=== PATIENT | female | born 2000 | race Caucasian/White ===

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

== ENCOUNTER 2018-07-12 22:37 | Emergency (ER) | payer OTHER ==
[2018-07-12 22:46] VITALS: BP 118/64; PULSE 89; TEMP 98.4; BMI 24.5
[2018-07-13] MEDS ORDERED: ALBUTEROL SO4 0.083% IH SOL 2.5 MG/3 ML VIAL.NEB. NEB ONE ×2 (02:09→02:29)
[2018-07-13] MEDS ORDERED: LORATADINE 10 MG TABLET PO ONE (02:09)
--- NOTE | 2018-07-13 02:15 | PDOC ---
History of Present Illness - General Chief Complaint: Respiratory Stated Complaint: COUGH Time Seen by Provider: 07/13/18 01:25 History Source: Patient - History of Present Illness Initial Comments: 07/13/18 02:10 17 year old female c/o nasal congestion cough, ithcy throat and itchy eyes x 10 days. reports feeling chills and tactile temps at home. denies NVD + posttussive vomiting. Past History - Past Medical History Allergies/Adverse Reactions: Allergies Allergy/AdvReac Type Severity Reaction Status Date / Time levofloxacin [From Levaquin] Allergy Difficulty Verified 07/12/18 22:47 Breathing Home Medications: Ambulatory Orders Doxycycline Hyclate [Vibramycin -] 100 mg PO BID #28 cap 11/19/17 Albuterol Sulfate Inhaler - [Ventolin HFA Inhaler -] 2 inh PO Q6H PRN #1 inh Fluticasone Propionate [Flonase Allergy Relief] 9.9 ml NS BID #1 spray.susp Loratadine [Claritin] 10 mg PO DAILY #30 tablet 07/13/18 Cardiac Disorders: No COPD: No Thyroid Disease: No - Immunization History Immunization Up to Date: Yes - Suicide/Smoking/Psychosocial Hx Smoking History: Never smoked Have you smoked in the past 12 months: No Hx Alcohol Use: No Drug/Substance Use Hx: No Substance Use Type: None Review of Systems - Review of Systems Able to Perform ROS?: Yes Is the patient limited Divehi proficient: No Constitutional: Yes: Chills, Fever HEENTM: No: Symptoms Reported, See HPI, Eye Pain, Blurred Vision, Tearing, Recent change in vision, Double Vision, Cataracts, Ear Pain, Ocular Prothesis, Ear Discharge, Nose Pain, Nose Congestion, Tinnitus, Nose Bleeding, Hearing Loss , Throat Pain, Throat Swelling, Mouth Pain, Dental Problems, Difficulty Swallowing, Mouth Swelling, Other Respiratory: Yes: Cough. No: Symptoms reported, See HPI, Orthopnea, Shortness of Breath, SOB with Exertion, SOB at Rest, Stridor, Wheezing, Productive cough, Hemoptysis, Other Cardiac (ROS): No: Symptoms Reported, See HPI, Chest Pain, Edema, Irregular Heart Rate, Lightheadedness, Palpitations, Syncope, Chest Tightness, Other ABD/GI: No: Symptoms Reported, See HPI, Abdominal Distended, Abd. Pain w/ defecation, Blood Streaked Bowels, Constipated, Diarrhea, Difficulty Swallowing , Nausea, Poor Appetite, Poor Fluid Intake, Rectal Bleeding, Vomiting, Indigestion, Abdominal cramping, Tarry Stools, Other *Physical Exam - Vital Signs Last Vital Signs Temp Pulse Resp BP Pulse Ox 98.4 F 89 18 118/64 99 07/12/18 22:45 07/12/18 22:45 07/12/18 22:45 07/12/18 22:45 07/12/18 22:45 - Physical Exam General Appearance: Yes: Appropriately Dressed HEENT: positive: Normal ENT Inspection, Nasal Congestion Respiratory/Chest: positive: Rhonchi. negative: Chest Tender, Lungs Clear, Normal Breath Sounds, Respiratory Distress, Accessory Muscle Use, Labored Respiration, Rapid RR, Decreased Breath Sounds, Paradoxal Breathing, Crackles, Rales, Stridor, Wheezing, Hyperresonant, Dullness, Plerual Rub, Other Gastrointestinal/Abdominal: positive: Normal Bowel Sounds, Soft Integumentary: positive: Normal Color, Dry, Warm Neurologic: positive: Fully Oriented, Alert, Normal Mood/Affect Progress Note - Progress Note Progress Note: A: viral URI P: albuterol claritin flonase *DC/Admit/Observation/Transfer Diagnosis at time of Disposition: Seasonal allergies Qualifiers: Allergic rhinitis trigger: unspecified Qualified Code(s): J30.2 - Other seasonal allergic rhinitis URI (upper respiratory infection) Qualifiers: URI type: unspecified viral URI Qualified Code(s): J06.9 - Acute upper respiratory infection, unspecified - Prescriptions Prescriptions: Albuterol Sulfate Inhaler - [Ventolin HFA Inhaler -] 2 inh PO Q6H PRN #1 inh PRN Reason: Cough Fluticasone Propionate [Flonase Allergy Relief] 9.9 ml NS BID #1 spray.susp Loratadine [Claritin] 10 mg PO DAILY #30 tablet - Referrals Referrals: Maria Esther Sahni [Primary Care Provider] - - Patient Instructions Printed Discharge Instructions: DI for Viral Upper Respiratory Infection -- Adult Additional Instructions: Additional Instructions: * Please call your personal physician to report your Emergency Department visit and to report your progress, if any. * If there is no improvement in symptoms in 2 days call your physician. * Return to the Emergency Department for any worsening symptoms. use claritin as prescribed use albuterol every 6 hours as needed for cough use flonase as prescribed - Post Discharge Activity Forms/Work/School Notes: Back to Work
[2018-07-13] MEDS ORDERED: LORATADINE 10 MG TABLET ONE (02:29)
--- NOTE | 2018-07-13 03:45 | PDOC ---
*Physical Exam - Vital Signs Last Vital Signs Temp Pulse Resp BP Pulse Ox 98.4 F 89 18 118/64 97 07/12/18 22:45 07/12/18 22:45 07/12/18 22:45 07/12/18 22:45 07/13/18 02:01 ED Treatment Course - Medications Given in the ED: ED Medications Discontinued Medications Generic Name Dose Route Start Last Admin Trade Name Freq PRN Reason Stop Dose Admin Albuterol Sulfate 1 amp 07/13/18 02:09 07/13/18 02:30 Ventolin 0.083% Nebulizer Soln - NEB 07/13/18 02:10 1 amp ONCE ONE Administration Loratadine 10 mg 07/13/18 02:09 07/13/18 02:30 Claritin - PO 07/13/18 02:10 10 mg ONCE ONE Administration Medical Decision Making - Medical Decision Making 07/13/18 03:44 History and physical as documented in resp illness note from this visit agree with plan *DC/Admit/Observation/Transfer Diagnosis at time of Disposition: Seasonal allergies Qualifiers: Allergic rhinitis trigger: unspecified Qualified Code(s): J30.2 - Other seasonal allergic rhinitis URI (upper respiratory infection) Qualifiers: URI type: unspecified viral URI Qualified Code(s): J06.9 - Acute upper respiratory infection, unspecified - Prescriptions Prescriptions: Albuterol Sulfate Inhaler - [Ventolin HFA Inhaler -] 2 inh PO Q6H PRN #1 inh PRN Reason: Cough Fluticasone Propionate [Flonase Allergy Relief] 9.9 ml NS BID #1 spray.susp Loratadine [Claritin] 10 mg PO DAILY #30 tablet - Referrals Referrals: Maria Esther Sahni [Primary Care Provider] - - Patient Instructions Printed Discharge Instructions: DI for Viral Upper Respiratory Infection -- Adult Additional Instructions: Additional Instructions: * Please call your personal physician to report your Emergency Department visit and to report your progress, if any. * If there is no improvement in symptoms in 2 days call your physician. * Return to the Emergency Department for any worsening symptoms. use claritin as prescribed use albuterol every 6 hours as needed for cough use flonase as prescribed - Post Discharge Activity Forms/Work/School Notes: Back to Work
== END 2018-07-13 03:52 | disposition home or self-care (01) ==
LOC: JER 22:37
PROC: 3E0F7GC Introduction of Other Therapeutic Substance into Respiratory Tract, Via Natural or Artificial Opening (ICD-10-PCS; principal; 2018-07-12)
DX: J06.9 Acute upper respiratory infection, unspecified (principal); J30.2 Other seasonal allergic rhinitis
CPT/HCPCS: 94640; 99283-25

== ENCOUNTER 2021-01-19 21:56 | Emergency (ER) | payer OTHER ==
[2021-01-19 22:06] VITALS: BP 127/74; PULSE 72; TEMP 98.4; BMI 18.5
[2021-01-19] MEDS ORDERED: ACETAMINOPHEN/CAFFEINE/BUTALBITAL 1 TAB PO ONE (22:45)
[2021-01-19] MEDS ORDERED: ACETAMINOPHEN/CAFFEINE/BUTALBITAL 1 TAB ONE (22:47)
== END 2021-01-19 23:00 | disposition home or self-care (01) ==
LOC: JERFT 21:56
DX: R51.9 Headache, unspecified (principal); M54.5 Low back pain; M79.10 Myalgia, unspecified site
CPT/HCPCS: 99283-25

== ENCOUNTER 2022-06-10 14:13 | Emergency (ER) | payer OTHER ==
[2022-06-10 14:48] VITALS: BP 127/63; PULSE 114; RESP 18; TEMP 99.3; BMI 22.4
== END 2022-06-10 18:37 | disposition home or self-care (01) ==
LOC: JER 14:13
DX: J09.X2 Influenza due to identified novel influenza A virus with other respiratory manifestations (principal)
CPT/HCPCS: 99281-25

== ENCOUNTER 2022-06-22 20:01 | Emergency (ER) | payer OTHER ==
[2022-06-22 20:12] VITALS: BP 124/85; PULSE 80; RESP 19; TEMP 98.3; BMI 22.4
[2022-06-22] MEDS ORDERED: DEXAMETHASONE LIQUID 0.5 MG/5 ML PO ONE (21:03)
[2022-06-22] MEDS ORDERED: ALBUTEROL SO4 2.5/IPRATROPIUM 0.5 INH SOL 3 ML VIAL.NEB. NEB ONE (21:07)
[2022-06-22] MEDS ORDERED: DEXAMETHASONE SOD PHOSPHATE 10 MG/1 ML VIAL ONE (21:07)
[2022-06-22] MEDS ORDERED: ALBUTEROL SO4 2.5/IPRATROPIUM 0.5 INH SOL 3 ML VIAL.NEB. NEB SCH (21:15)
== END 2022-06-22 22:25 | disposition home or self-care (01) ==
LOC: JER 20:01 → JERFT 20:01
PROC: 3E0F7GC Introduction of Other Therapeutic Substance into Respiratory Tract, Via Natural or Artificial Opening (ICD-10-PCS; principal; 2022-06-22)
DX: R06.2 Wheezing (principal); R19.7 Diarrhea, unspecified; R11.10 Vomiting, unspecified; R21 Rash and other nonspecific skin eruption
CPT/HCPCS: 71046-TC-FY; 87651; 99284-25

== ENCOUNTER 2023-01-29 20:30 | Emergency (ER) | payer OTHER ==
[2023-01-29 20:40] VITALS: BP 127/76; PULSE 91; RESP 18; TEMP 98.7; BMI 19.6
[2023-01-29] MEDS: ALBUTEROL SO4 2.5/IPRATROPIUM 0.5 INH SOL 3 ML VIAL.NEB. NEB SCH (21:43)
[2023-01-29] MEDS ORDERED: ALBUTEROL SO4 2.5/IPRATROPIUM 0.5 INH SOL 3 ML VIAL.NEB. NEB ONE (21:44)
[2023-01-29] MEDS ORDERED: predniSONE 20 MG TABLET (UD) PO ONE (22:26)
[2023-01-29] MEDS ORDERED: ACETAMINOPHEN 325 MG TABLET (FP) PO ONE (22:26)
[2023-01-29] MEDS ORDERED: predniSONE 20 MG TABLET (UD) ONE (22:32)
[2023-01-29] MEDS ORDERED: ACETAMINOPHEN 325 MG TABLET (FP) ONE (22:32)
== END 2023-01-29 22:43 | disposition home or self-care (01) ==
LOC: JERFT 20:30 → JER 20:30 → JERFT 22:43
PROC: 3E0F7GC Introduction of Other Therapeutic Substance into Respiratory Tract, Via Natural or Artificial Opening (ICD-10-PCS; principal; 2023-01-29)
DX: J20.9 Acute bronchitis, unspecified (principal); R06.02 Shortness of breath; J06.9 Acute upper respiratory infection, unspecified; R53.1 Weakness; Z20.822 Contact with and (suspected) exposure to COVID-19
CPT/HCPCS: 0241U-QW; 71046-TC-FY; 99284-25

== ENCOUNTER 2023-02-17 14:52 | Emergency (ER) | payer OTHER ==
[2023-02-17 14:58] VITALS: BP 110/62; RESP 20; BMI 19.4
[2023-02-17] MEDS ORDERED: ALBUTEROL SO4 2.5/IPRATROPIUM 0.5 INH SOL 3 ML VIAL.NEB. NEB ONE ×2 (15:10→15:21)
[2023-02-17] MEDS ORDERED: IBUPROFEN 600 MG TABLET (FP) PO ONE ×2 (15:10→15:21)
[2023-02-17] MEDS ORDERED: ACETAMINOPHEN 500 MG TABLET (FP) ONE (16:02)
[2023-02-17] MEDS ORDERED: ACETAMINOPHEN 500 MG TABLET (FP) PO ONE (16:02)
[2023-02-17] MEDS ORDERED: SODIUM CHLORIDE 1,000 ML IV STA (17:18)
[2023-02-17 18:16] LABS: BASO % 0.3 % (0-2.0); EOS % 0.3 % (0-4.5); HEMATOCRIT 37.6 % (32.4-45.2); HEMOGLOBIN 12.5 GM/dL (10.7-15.3); LYMPH % 5.3 % (8-40); MCH 27.4 pg (25.7-33.7); MCHC 33.4 g/dl (32.0-36.0); MEAN CELL VOLUME 81.9 fl (80-96); MEAN PLT VOLUME 8.1 fl (7.5-11.1); MONO % 6.9 % (3.8-10.2); NEUT % 87.2 % (42.8-82.8); PLATELET COUNT 319 10^3/uL (134-434); RBC 4.59 M/mm3 (3.60-5.2); RDW 13.5 % (11.6-15.6); WHITE BLOOD COUNT 15.7 K/mm3 (4.0-10.0)
[2023-02-17 18:56] LABS: POTASSIUM 3.4 mmol/L (3.5-5.1)
[2023-02-17 18:57] LABS: ALBUMIN 3.9 g/dl (3.4-5.0); CALCIUM 9.6 mg/dL (8.5-10.1)
[2023-02-17 18:58] LABS: BLOOD UREA NITROGEN 8.8 mg/dL (7-18)
[2023-02-17 19:01] LABS: CREATININE 0.6 mg/dL (0.55-1.3)
[2023-02-17 19:03] LABS: BILIRUBIN,TOTAL 0.6 mg/dL (0.2-1); TOT PROT 7.7 g/dl (6.4-8.2)
[2023-02-17 19:07] VITALS: PULSE 90; TEMP 99.5
== END 2023-02-17 19:07 | disposition home or self-care (01) ==
LOC: JERFT 14:52
PROC: 3E0337Z Introduction of Electrolytic and Water Balance Substance into Peripheral Vein, Percutaneous Approach (ICD-10-PCS; principal; 2023-02-17)
PROC: 3E0F7GC Introduction of Other Therapeutic Substance into Respiratory Tract, Via Natural or Artificial Opening (ICD-10-PCS; 2023-02-17)
DX: R05.9 Cough, unspecified (principal); R07.1 Chest pain on breathing; M79.10 Myalgia, unspecified site; R50.9 Fever, unspecified; J98.01 Acute bronchospasm; Z20.822 Contact with and (suspected) exposure to COVID-19
CPT/HCPCS: 0241U-QW; 36415; 71046-TC-FY; 80053; 83690; 84703; 85025; 85379; 94640; 96360; 99284-25

== ENCOUNTER 2023-04-30 12:59 | Emergency (ER) | payer OTHER ==
[2023-04-30 13:04] VITALS: BP 123/79; PULSE 96; RESP 19; TEMP 98.3; BMI 19.8
[2023-04-30] MEDS ORDERED: EPINEPHrine 1:1,000 0.3 MG/0.3 ML SYR IM ONE (13:21)
[2023-04-30] MEDS ORDERED: FAMOTIDINE 20 MG/50 ML IVPB 20 MG/50 ML MG IVPB ONE ×2 (13:21→13:26)
[2023-04-30] MEDS ORDERED: DEXAMETHASONE SOD PHOSPHATE 10 MG/1 ML VIAL IM ONE (13:22)
[2023-04-30] MEDS ORDERED: methylPREDNISolone NA SUCC 125 MG/2 ML VIAL IVPUSH ONE (13:24)
[2023-04-30] MEDS ORDERED: EPINEPHrine/PF 1 MG/1 ML (1:1,000) AMPULE ONE (13:26)
[2023-04-30] MEDS ORDERED: DEXAMETHASONE SOD PHOSPHATE 10 MG/1 ML VIAL ONE (13:26)
[2023-04-30] MEDS ORDERED: methylPREDNISolone NA SUCC 125 MG/2 ML VIAL ONE (13:45)
[2023-04-30 14:34] LABS: BASO % 0.2 % (0-2.0); EOS % 10.8 % (0-4.5); HEMATOCRIT 40.5 % (32.4-45.2); HEMOGLOBIN 13.3 GM/dL (10.7-15.3); LYMPH % 11.2 % (8-40); MCH 27.1 pg (25.7-33.7); MCHC 32.7 g/dl (32.0-36.0); MEAN CELL VOLUME 82.9 fl (80-96); MONO % 9.1 % (3.8-10.2); NEUT % 68.7 % (42.8-82.8); PLATELET COUNT 298 10^3/uL (134-434); RBC 4.89 M/mm3 (3.60-5.2); RDW 13.7 % (11.6-15.6); WHITE BLOOD COUNT 6.6 K/mm3 (4.0-10.0)
[2023-04-30 14:56] LABS: CALCIUM 8.9 mg/dL (8.5-10.1); POTASSIUM 3.8 mmol/L (3.5-5.1)
[2023-04-30 14:57] LABS: ALBUMIN 4.3 g/dl (3.4-5.0); BLOOD UREA NITROGEN 14.3 mg/dL (7-18)
[2023-04-30 15:00] LABS: CREATININE 0.7 mg/dL (0.55-1.3)
[2023-04-30 15:02] LABS: TOT PROT 8.2 g/dl (6.4-8.2)
[2023-04-30 15:15] LABS: BILIRUBIN,TOTAL 0.3 mg/dL (0.2-1)
== END 2023-04-30 18:15 | disposition home or self-care (01) ==
LOC: JER 12:59
PROC: 3E033GC Introduction of Other Therapeutic Substance into Peripheral Vein, Percutaneous Approach (ICD-10-PCS; principal; 2023-04-30)
PROC: 3E033GC Introduction of Other Therapeutic Substance into Peripheral Vein, Percutaneous Approach (ICD-10-PCS; 2023-04-30)
PROC: 3E033GC Introduction of Other Therapeutic Substance into Peripheral Vein, Percutaneous Approach (ICD-10-PCS; 2023-04-30)
PROC: 3E023GC Introduction of Other Therapeutic Substance into Muscle, Percutaneous Approach (ICD-10-PCS; 2023-04-30)
PROC: 3E023GC Introduction of Other Therapeutic Substance into Muscle, Percutaneous Approach (ICD-10-PCS; 2023-04-30)
DX: T78.40XA Allergy, unspecified, initial encounter (principal); R21 Rash and other nonspecific skin eruption; R13.10 Dysphagia, unspecified; L50.9 Urticaria, unspecified
CPT/HCPCS: 36415; 80053; 85025; 99284-25; J0171; J1100

== ENCOUNTER 2024-04-28 17:47 | Emergency (ER) | payer OTHER ==
[2024-04-28 18:03] VITALS: BP 109/69; PULSE 69; RESP 17; TEMP 98.1; BMI 23.6
[2024-04-28] MEDS ORDERED: IBUPROFEN 600 MG TABLET (FP) PO ONE (18:38)
[2024-04-28] MEDS: IBUPROFEN 600 MG TABLET (FP) PO ONE (18:39)
== END 2024-04-28 20:08 | disposition home or self-care (01) ==
LOC: JERFT 17:47
PROC: 2W3RX1Z Immobilization of Left Lower Leg using Splint (ICD-10-PCS; principal; 2024-04-28)
DX: S82.402A Unspecified fracture of shaft of left fibula, initial encounter for closed fracture (principal); X50.1XXA Overexertion from prolonged static or awkward postures, initial encounter
CPT/HCPCS: 73610-TC-LT-FY; 73630-TC-LT; 99283-25